=== PATIENT | male | born 1990 | race Caucasian/White ===

== ENCOUNTER 2022-08-27 13:13 | Emergency (ER) | payer SELFPAY ==
[2022-08-27 16:39] LABS: CORONAVIRUS COVID-19 NAA NEGATIVE (NEGATIVE)
== END 2022-08-29 06:45 ==
LOC: JD.ED 13:13
DX: R45.851 Suicidal ideations (principal); Z20.822 Contact with and (suspected) exposure to COVID-19; Z88.1 Allergy status to other antibiotic agents; Z88.5 Allergy status to narcotic agent
CPT/HCPCS: 0241U; 36415; 80053; 80143; 80179; 80306; 80307; 84443; 85025; 93005; 99285; 93010; 99284